=== PATIENT | female | born 1975 | race Caucasian/White ===

== ENCOUNTER 2017-04-15 18:39 | Emergency (ER) | payer BC ==
[2017-04-15 19:42] VITALS: BP 129/89
--- NOTE | 2017-04-15 20:51 | RAD ---
HISTORY: Fall COMPARISONS: None VIEWS: 3, Frontal view of the pelvis with frontal and frog-leg views of the left hip FINDINGS: BONE DENSITY: Normal. BONES: There is no displaced fracture. JOINTS: There is no arthropathy. ALIGNMENT: There is no dislocation. SOFT TISSUES: Unremarkable. OTHER FINDINGS: None. IMPRESSION: NO RADIOGRAPHIC EVIDENCE FOR HIP FRACTURE. X-RAYS MAY BE NEGATIVE WITH NONDISPLACED HIP FRACTURE, IF THERE IS PERSISTENT CLINICAL CONCERN, RECOMMEND CONSIDERATION OF MRI. IN THE SETTING OF CONTRAINDICATION TO MRI OR LIMITATION IN EMERGENT ACCESS TO MRI, CT WOULD BE SUGGESTED.
[2017-04-15] MEDS ORDERED: Ketorolac INJ* 30 MG/ML 1 ML VIAL IM ONE (21:01)
--- NOTE | 2017-04-15 21:04 | UC ---
Hip/Pelvis Pain - HPI Summary HPI Summary: Patient was dancing, right hip gave out and she fell, pain and tingling down the right leg. - History Of Current Complaint Chief Complaint: UCLowerExtremity Stated Complaint: RIGHT HIP PAIN Time Seen by Provider: 04/15/17 20:12 Hx Obtained From: Patient Hx Last Menstrual Period: TUBAL ?: No Onset/Duration: Sudden Onset, Lasting Days Timing: Constant Severity Initially: Moderate Severity Currently: Moderate Location: Discrete At: - right hip Character Of Pain: Spasmodic, Stiffness Aggravating Factor(s): Movement, Weight Bearing Alleviating Factor(s): Nothing Associated Signs And Symptoms: Positive: Weakness - Risk Factors Septic Arthritis Risk Factor: Negative - Allergies/Home Medications Allergies/Adverse Reactions: Allergies Allergy/AdvReac Type Severity Reaction Status Date / Time No Known Allergies Allergy Verified 04/15/17 19:42 Home Medications: Home Medications Ibuprofen TAB* [Motrin TAB* 800 MG] 800 mg PO Q6H PRN 04/15/17 [History Confirmed 04/15/17] PMH/Surg Hx/FS Hx/Imm Hx Previously Healthy: Yes - Surgical History Surgical History: Yes Surgery Procedure, Year, and Place: gastric bypass, gallbladder removed. - Family History Known Family History: Negative: Diabetes - Social History Alcohol Use: None Substance Use Type: None Smoking Status (MU): Never Smoked Tobacco Review of Systems Constitutional: Negative Skin: Negative Eyes: Negative ENT: Negative Respiratory: Negative Cardiovascular: Negative Gastrointestinal: Negative Genitourinary: Negative Motor: Negative Neurovascular: Negative Musculoskeletal: Arthralgia, Decreased ROM, Myalgia Neurological: Negative Psychological: Negative All Other Systems Reviewed And Are Negative: Yes Physical Exam Triage Information Reviewed: Yes Appearance: Well-Appearing, Well-Nourished, Pain Distress Vital Signs: Initial Vital Signs Temp 97.3 F 04/15/17 19:35 Pulse 77 04/15/17 19:35 Resp 12 04/15/17 19:35 BP 129/89 04/15/17 19:35 Pulse Ox 100 04/15/17 19:35 Vital Signs Reviewed: Yes Eye Exam: Normal ENT Exam: Normal ENT: Positive: Pharynx normal, Pharyngeal erythema, TMs normal Dental Exam: Normal Neck exam: Normal Respiratory Exam: Normal Cardiovascular Exam: Normal Abdominal Exam: Normal Bowel Sounds: Positive: Present Musculoskeletal: Positive: No Edema, Strength Limited @ - in right hip, knee ROM normal, right hip limited in flexion and extention due to pain, ROM Limited @ Neurological Exam: Normal Psychological Exam: Normal Skin Exam: Normal Hip Injury Course/Dx - Course Course Of Treatment: hx obtained, exam performed, meds reviewed toradol given - Differential Dx/Diagnosis Differential Diagnosis/HQI/PQRI: Contusion, Dislocation, Fracture, Sciatica, Sprain, Strain Provider Diagnoses: right hip strain. right hip sprain Discharge - Discharge Plan Condition: Stable Disposition: HOME Patient Education Materials: Hip Pain (ED) Referrals: Uma Durán PA [Primary Care Provider] - Soto Woods MD [Medical Doctor] - Additional Instructions: 1. rest, ice or heat as tolerated, continue with ibuprofen starting tomorrow for pain. 2. If pain and stability are not improving over the next week follow up with Dr Woods the orthopedic,
== END 2017-04-15 21:31 | disposition home or self-care (01) ==
LOC: UCCORT 18:39
DX: S76.011A Strain of muscle, fascia and tendon of right hip, initial encounter (principal); S73.101A Unspecified sprain of right hip, initial encounter; W18.30XA Fall on same level, unspecified, initial encounter; Y93.41 Activity, dancing; Y92.9 Unspecified place or not applicable
CPT/HCPCS: 96372; 99211; G0463; J1885

== ENCOUNTER 2017-06-04 13:02 | Emergency (ER) | payer BC ==
[2017-06-04 13:30] VITALS: BP 117/64
--- NOTE | 2017-06-04 13:55 | UC ---
Hand/Wrist HPI - HPI Summary HPI Summary: patient has had increased right hand and thumb pain, she uses her hands alot a work, cant move the thumb without pain. - History Of Current Complaint Chief Complaint: UCUpperExtremity Stated Complaint: RIGHT HAND PAIN Time Seen by Provider: 06/04/17 13:41 Hx Obtained From: Patient Hx Last Menstrual Period: 05/23/17 ?: No Onset/Duration: Gradual Onset, Lasting Days Severity Initially: Moderate Severity Currently: Severe Character Of Pain: Aching, Stiffness Aggravating Factor(s): Movement Associated Signs And Symptoms: Positive: Weakness Related History: Dominant Hand Right - Allergies/Home Medications Allergies/Adverse Reactions: Allergies Allergy/AdvReac Type Severity Reaction Status Date / Time No Known Allergies Allergy Verified 06/04/17 13:30 PMH/Surg Hx/FS Hx/Imm Hx Previously Healthy: Yes - Surgical History Surgical History: Yes Surgery Procedure, Year, and Place: gastric bypass, gallbladder removed. - Family History Known Family History: Negative: Diabetes - Social History Alcohol Use: None Substance Use Type: None Smoking Status (MU): Never Smoked Tobacco Review of Systems Constitutional: Negative Skin: Negative Eyes: Negative ENT: Negative Respiratory: Negative Cardiovascular: Negative Gastrointestinal: Negative Genitourinary: Negative Motor: Negative Neurovascular: Negative Musculoskeletal: Arthralgia, Decreased ROM, Edema, Myalgia Neurological: Negative Psychological: Negative All Other Systems Reviewed And Are Negative: Yes Physical Exam Triage Information Reviewed: Yes Appearance: Well-Appearing, Pain Distress, Obese Vital Signs: Initial Vital Signs Temp 97.9 F 06/04/17 13:24 Pulse 65 06/04/17 13:24 Resp 16 06/04/17 13:24 BP 117/64 06/04/17 13:24 Pulse Ox 100 06/04/17 13:24 Vital Signs Reviewed: Yes Eye Exam: Normal ENT Exam: Normal Dental Exam: Normal Neck exam: Normal Respiratory Exam: Normal Respiratory: Positive: Chest non-tender, Lungs clear, Normal breath sounds Cardiovascular Exam: Normal Cardiovascular: Positive: RRR, No Murmur, Pulses Normal Abdominal Exam: Normal Abdomen Description: Positive: Nontender, No Organomegaly, Soft Bowel Sounds: Positive: Present Musculoskeletal: Positive: 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 after demonstration, patients pain was gone. - Differential Dx/Diagnosis Differential Diagnosis/HQI/PQRI: Bursitis, Sprain, Strain, Tendonitis Provider Diagnoses: dequeriviens tendonitis. right wrist felxor tendonitis Discharge - Discharge Plan Condition: Stable Disposition: HOME Patient Education Materials: De Quervain Disease (ED) Additional Instructions: 1. continue with the stretches that we talked about 2. .You would benefit from a massage of your upper extermities 3. use the splint for work to help stabilize the hand 4. warm water soaks and NSaids for pain and inflammation
== END 2017-06-04 14:01 | disposition home or self-care (01) ==
LOC: UCCORT 13:02
DX: M77.9 Enthesopathy, unspecified (principal); Z98.84 Bariatric surgery status
CPT/HCPCS: 99212; G0463

== ENCOUNTER 2018-06-15 10:37 | Emergency (ER) | payer BC ==
[2018-06-15 10:54] VITALS: BP 124/77
--- NOTE | 2018-06-15 11:07 | ED ---
Lower Extremity - HPI Summary HPI Summary: 43 yr old female with the complaint of left leg, and thigh pain. Onset of pain 3-4 days ago. No injury, and she doesn't recall a specific activity or moment that her symptoms started. No fall, trauma, twisting or sudden injuries. She states her left calf hurts with movement of foot and she has discomfort and ache up in the medial thigh as well. She denies fever, chills, long trips, SOB , CP. She has no other complaints. - History of Current Complaint Chief Complaint: UCLowerExtremity Stated Complaint: LEFT ANKLE INJURY Time Seen by Provider: 06/15/18 10:50 Hx Last Menstrual Period: 06/09/18 Pain Intensity: 8 - Allergies/Home Medications Allergies/Adverse Reactions: Allergies Allergy/AdvReac Type Severity Reaction Status Date / Time No Known Allergies Allergy Verified 06/15/18 10:49 Home Medications: Home Medications Ibuprofen TAB* [Advil TAB*] 1,000 mg PO BID PRN 06/15/18 [History Confirmed 04/25] PMH/Surg Hx/FS Hx/Imm Hx - Surgical History Surgery Procedure, Year, and Place: gastric bypass, gallbladder removed. Infectious Disease History: No Infectious Disease History: Reports: Hx Shingles Denies: Hx Clostridium Difficile, Hx Hepatitis, Hx Human Immunodeficiency Virus (HIV), Hx of Known/Suspected MRSA, Hx Tuberculosis, Hx Known/Suspected VRE , Hx Known/Suspected VRSA, History Other Infectious Disease, Traveled Outside the in Last 30 Days - Family History Known Family History: Positive: None Negative: Diabetes Family History: Denies - Social History Alcohol Use: None Substance Use Type: Reports: None Smoking Status (MU): Never Smoked Tobacco Review of Systems Constitutional: Negative Eyes: Negative Positive: Other - left calf and thigh pain All Other Systems Reviewed And Are Negative: Yes Physical Exam Triage Information Reviewed: Yes Vital Signs On Initial Exam: Initial Vitals Temp Pulse Resp BP Pulse Ox 97.8 F 80 17 124/77 100 06/15/18 10:50 06/15/18 10:50 06/15/18 10:50 06/15/18 10:50 06/15/18 10:50 Vital Signs Reviewed: Yes Appearance: Positive: Well-Appearing Skin: Positive: Warm, Skin Color Reflects Adequate Perfusion Head/Face: Positive: Normal Head/Face Inspection Eyes: Positive: EOMI Respiratory/Lung Sounds: Positive: Clear to Auscultation, Breath Sounds Present Cardiovascular: Positive: RRR. Negative: Murmur Abdomen Description: Negative: Distended Musculoskeletal: Positive: Edema Left - slight left calf, tenderness left calf and left medial thigh. No ankle or knee effusion. No medial or lateral malleolus tenderness left ankle. No achilles tendon swelling, bruising or tenderness. Neurological: Positive: Sensory/Motor Intact, Alert, Oriented to Person Place, Time, CN Intact II-III Psychiatric: Positive: Normal Diagnostics - Vital Signs Vital Signs Temp Pulse Resp BP Pulse Ox 06/15/18 10:50 97.8 F 80 17 124/77 100 - Laboratory Lab Statement: Any lab studies that have been ordered have been reviewed, and results considered in the medical decision making process. - Additional Comments Diagnostic Additional Comments: Venous doppler left leg negative for DVT per radiologist. Lower Extremity Course/Dx - Course Course Of Treatment: 43 yr old with negative US left lower extremity. She likely has a calf muscle strain. Crutches. Bear weight as tolerates. FU with PMD, and Ortho referral given. - Diagnoses Provider Diagnoses: Strain of calf muscle Discharge - Sign-Out/Discharge Documenting (check all that apply): Patient Departure All imaging exams completed and their final reports reviewed: Yes - Discharge Plan Condition: Good Disposition: HOME Prescriptions: Ibuprofen TAB* [Motrin TAB* 600 MG] 600 mg PO Q6H PRN #20 tab PRN Reason: Pain Patient Education Materials: Muscle Strain (ED) Referrals: Uma Durán PA [Primary Care Provider] - 2 Days - Billing Disposition and Condition Condition: GOOD Disposition: Home
--- NOTE | 2018-06-15 11:32 | RAD ---
HISTORY: pain in calf, and thigh, COMPARISONS: None relevant TECHNIQUE: Multiple transverse and longitudinal ultrasound images were obtained of the left lower extremity from the level of the common femoral vein inferiorly through to the infrapopliteal veins using grayscale, color Doppler, and spectral Doppler imaging with and without compression and with augmentation. Comparison images were obtained of the contralateral common femoral vein. FINDINGS: VEINS: The venous system of the left lower extremity is compressible throughout its course, with normal flow on color Doppler imaging and normal response to augmentation on spectral Doppler imaging. SOFT TISSUES: Unremarkable. OTHER FINDINGS: None. IMPRESSION: NO LEFT LOWER EXTREMITY DEEP VEIN THROMBOSIS
== END 2018-06-15 12:04 | disposition home or self-care (01) ==
LOC: UCCORT 10:37
DX: S86.812A Strain of other muscle(s) and tendon(s) at lower leg level, left leg, initial encounter (principal); X58.XXXA Exposure to other specified factors, initial encounter; Y92.9 Unspecified place or not applicable
CPT/HCPCS: 99212; G0463

== ENCOUNTER 2019-09-26 21:36 | Emergency (ER) | payer BC ==
[2019-09-26 21:45] VITALS: BP 124/67
[2019-09-26] MEDS ORDERED: Ibuprofen TAB* 600 MG PO ONE (21:52)
--- NOTE | 2019-09-26 21:54 | UC ---
Hand/Wrist HPI - HPI Summary HPI Summary: 44 yo woman with injury to the right thumb within the hour. She pulled her car door open with her right hand, with immediate pain in the entire thumb, radiating to the forearm. States that she cannot move her thumb. - History Of Current Complaint Chief Complaint: UCUpperExtremity Stated Complaint: THUMB INJ Time Seen by Provider: 09/26/19 21:44 Hx Obtained From: Patient Hx Last Menstrual Period: 09/08/19 Onset/Duration: Sudden Onset, Lasting Minutes Severity Initially: Moderate Severity Currently: Moderate Pain Intensity: 10 Character Of Pain: Throbbing Aggravating Factor(s): Movement Alleviating Factor(s): Rest, Ice Associated Signs And Symptoms: Positive: Swelling - mild swelling of the right thumb Related History: Dominant Hand Right - Allergies/Home Medications Allergies/Adverse Reactions: Allergies Allergy/AdvReac Type Severity Reaction Status Date / Time No Known Allergies Allergy Verified 09/26/19 21:40 Home Medications: Home Medications Ropinirole ER (NF) [Ropinirole ER (Nf)] 8 mg PO DAILY 09/26/19 [History Confirmed 09/26/19] PMH/Surg Hx/FS Hx/Imm Hx Previously Healthy: Yes Neurological History: Other - restless leg syndrome - Surgical History Surgical History: Yes Surgery Procedure, Year, and Place: gastric bypass, gallbladder removed. - Family History Known Family History: Positive: Non-Contributory Negative: Diabetes Family History: Denies - Social History Occupation: Employed Full-time Alcohol Use: None Substance Use Type: None Smoking Status (MU): Never Smoked Tobacco Review of Systems All Other Systems Reviewed And Are Negative: Yes Constitutional: Positive: Negative Skin: Positive: Negative Eyes: Positive: Negative ENT: Positive: Negative Respiratory: Positive: Negative Cardiovascular: Positive: Negative Gastrointestinal: Positive: Negative Genitourinary: Positive: Negative Motor: Positive: Decreased ROM, Other - pain right thumb Neurovascular: Positive: Negative Musculoskeletal: Positive: Negative Neurological: Positive: Negative Psychological: Positive: Negative Is Patient Immunocompromised?: No Physical Exam Triage Information Reviewed: Yes Appearance: Obese Vital Signs: Initial Vital Signs Temp 98 F 09/26/19 21:42 Pulse 79 09/26/19 21:42 Resp 18 09/26/19 21:42 BP 124/67 09/26/19 21:42 Pulse Ox 100 12/19/19 21:42 Eye Exam: Normal ENT: Positive: Normal ENT inspection Respiratory Exam: Normal Cardiovascular: Positive: RRR, No Murmur Bowel Sounds: Positive: Present Musculoskeletal: Positive: Strength Intact, ROM Limited @ - right thumb with mild diffuse swelling, no obvious deformity, Neurological Exam: Normal Neurological: Positive: Alert Diagnostics - Radiology No standard instances Radiology Interpretation Completed By: ED Physician - severe degenerative change DIP joint of thumb, evidence of degenerative change first FDC. Lytic areas middle phalanx. No fracture. Hand/Wrist Course/Dx - Course Course Of Treatment: Thumb spica and referral Reviewed abnormal xray of the thumb, advised orthopedic assessment. - Differential Dx/Diagnosis Differential Diagnosis/HQI/PQRI: Fracture, Sprain, Strain Provider Diagnosis: Strain of right thumb Discharge ED - Sign-Out/Discharge Documenting (check all that apply): Patient Departure All imaging exams completed and their final reports reviewed: No - Discharge Plan Condition: Stable Disposition: HOME Patient Education Materials: Finger Sprain (ED) Referrals: Uma Durán PA [Primary Care Provider] - Soto Woods MD [Medical Doctor] - Additional Instructions: My impression of the xray is that there is not a fracture, but that you have significant arthritic change in the thumb. The pattern of pain is most consistent with a strain/sprain of the tendon. Please wear the splint and arrange a visit with Dr. Woods for evaluation. Continue use of ice to the thumb, and use ibuprofen 600mg every 6 hours as needed for control of pain. - Billing Disposition and Condition Condition: STABLE Disposition: Home
--- NOTE | 2019-09-28 10:30 | UC ---
- Progress Note Progress Note: Reviewed radiology report of thumb xray. No change from wet reading, no change in management. Patient Name: ARISTEO ENCARNACION Medical Record#: [id number] Ordering Physician: Meredith Fishman MD Acct.#: [id number] : 1975 Age: 44 Sex: F Location: [facility] Exam Date: 09/26/192147 ADM Status: DEP ER Order Information: THUMB RIGHT Accession Number: [id number] CPT: 67955 INDICATION: Right thumb injury. TECHNIQUE: 3 views of the right thumb were obtained. FINDINGS: There is diffuse soft tissue swelling in the thumb. No acute fracture is seen. There is moderate to severe osteoarthritic change in the first carpometacarpal carpal and interphalangeal joints and mild to moderate osteoarthritic change in the metacarpal phalangeal joint. IMPRESSION: 1. NO EVIDENCE FOR FRACTURE. 2. OSTEOARTHRITIC CHANGE. R2 Preliminary Imaging Read R2 <Electronically signed by Cl Boogie MD in OV> 09/27/19729 Dictated By: Cl Boogie MD Dictated Date/Time: 09/27/19725 Transcribed Date/Time: 09/27/19725 Copy to: CC:Uma RANDOLPH; Meredith Fishman MD Imaging - [facility] Imaging - [facility] [address] [address] ph ([phone]) ph ([phone]) ph ([phone]) This report is only to be considered final once signed by the Provider(s) as displayed in the "<Electronically Signed by >" field (s). Absence of a signature indicates the report is in a draft status and still needs to be finalized. In the event this document was created by someone other than the signing Provider, the individual initiating the document will be listed in the "Entered by:" or "Dictated by:" knight. 1 of 1 Course/Dx - Diagnoses Provider Diagnoses: Strain of right thumb Discharge ED - Sign-Out/Discharge Documenting (check all that apply): Post-Discharge Follow Up All imaging exams completed and their final reports reviewed: Yes - Discharge Plan Condition: Stable Disposition: HOME Patient Education Materials: Finger Sprain (ED) Referrals: Soto Woods MD [Medical Doctor] - Uma Durán PA [Primary Care Provider] - Additional Instructions: My impression of the xray is that there is not a fracture, but that you have significant arthritic change in the thumb. The pattern of pain is most consistent with a strain/sprain of the tendon. Please wear the splint and arrange a visit with Dr. Woods for evaluation. Continue use of ice to the thumb, and use ibuprofen 600mg every 6 hours as needed for control of pain. - Billing Disposition and Condition Condition: STABLE Disposition: Home
== END 2019-09-26 22:24 | disposition home or self-care (01) ==
LOC: UCCORT 21:36
DX: S66.811A Strain of other specified muscles, fascia and tendons at wrist and hand level, right hand, initial encounter (principal); M19.041 Primary osteoarthritis, right hand; X58.XXXA Exposure to other specified factors, initial encounter; Y92.9 Unspecified place or not applicable; G25.81 Restless legs syndrome
CPT/HCPCS: 99213; A9270-GY; G0463